=== PATIENT | female | born 1935 | race African-American/Black ===

== ENCOUNTER 2021-01-04 09:30 | Emergency (ER) | payer OTHER ==
[~2021-01-04] VITALS: Ht 172.7 cm; Wt 85.0 kg
[~2021-01-04 09:30] MED LIST: [UNRECOGNIZED DRUG - REMARK]
[2021-01-04 10:16] LABS: BASOPHILS % 0.3 % (0.0-2.0); EOSINOPHILS % 0.2 % (0.0-5.0); HEMATOCRIT. 28.9 % (36.0-48.0); HEMOGLOBIN. 9.4 g/dL (12.0-16.0); MEAN CORPUSCULAR HEMOGLOBIN 27.8 pg (28.0-32.0); MEAN CORPUSCULAR VOLUME 85.2 fL (81.0-99.0); MEAN PLATELET VOLUME 7.2 fl (7.4-10.4); MONOCYTES % 10.3 % (2.0-8.0); NEUTROPHILS % 73.2 % (40.0-76.0); PLATELET 302 x1000/uL (130-400); RED BLOOD CELL COUNT 3.39 mill/uL (4.2-5.4); RED CELL DISTRIBUTION WIDTH 14.8 % (11.6-14.6)
[2021-01-04 10:25] LABS: CHLORIDE 103 mEq/L (98-107)
[2021-01-04 10:33] LABS: CREATINE KINASE 665 IU/L (26-192)
[2021-01-04 11:14] LABS: D-DIMER 3.64 mg/L FEU (<0.50)
[2021-01-04 16:00] VITALS: BP 125/38
== END 2021-01-04 16:06 | disposition short-term general hospital (02) ==
LOC: ER 09:38 → CANBEDREQ 16:18
DX: R55 Syncope and collapse (principal); E11.9 Type 2 diabetes mellitus without complications; I10 Essential (primary) hypertension; E78.00 Pure hypercholesterolemia, unspecified; Z96.641 Presence of right artificial hip joint
CPT/HCPCS: 36415; 71045; 80053; 82550; 82728; 83605; 83615; 83880; 84145; 84484; 85025; 85379; 85384; 86140; 93005; 99285